=== PATIENT | male | born 1985 | race African-American/Black ===

== ENCOUNTER 2017-05-10 19:36 | Emergency (ER) | payer OTHER ==
[~2017-05-10] VITALS: Ht 172.7 cm; Wt 95.5 kg
[2017-05-10] MEDS ORDERED: KEFLEX500 MG PO (23:32)
[2017-05-11 00:40] VITALS: BP 138/86
== END 2017-05-11 00:43 ==
LOC: EME 19:36
DX: S63.281A Dislocation of proximal interphalangeal joint of left index finger, initial encounter (principal); S61.211A Laceration without foreign body of left index finger without damage to nail, initial encounter; W01.0XXA Fall on same level from slipping, tripping and stumbling without subsequent striking against object, initial encounter; Z87.891 Personal history of nicotine dependence
CPT/HCPCS: 73120; 73130; 99281; 99285; J0690; J3010